=== PATIENT | female | born 1975 | race Two or more races ===

== ENCOUNTER 2017-09-28 12:26 | Observation (INO) | payer OTHER ==
--- NOTE | 2017-09-28 12:20 | CT ---
EXAMINATION TYPE: CT abdomen pelvis wo con DATE OF EXAM: 09/28/2017 COMPARISON: 03/03/2012 HISTORY: Generalized pain CT DLP: 1106 mGycm Automated exposure control for dose reduction was used. TECHNIQUE: Helical acquisition of images was performed from the lung bases through the pelvis. FINDINGS: LUNG BASES: Linear platelike right middle lobe subsegmental atelectasis is noted. LIVER/GB: Unenhanced liver is unremarkable in morphology. No evidence of cholelithiasis. PANCREAS: No ductal dilatation. SPLEEN: No splenomegaly. ADRENALS: No thickening or nodularity. KIDNEYS: Kidneys are unremarkable in morphology. FREE AIR: No free air is visualized RETROPERITONEAL ADENOPATHY: No greater than 1 cm short axis lymph nodes are seen within the abdomen or pelvis. REPRODUCTIVE ORGANS: Uterus is surgically absent. There is a small amount of simple free fluid within the pelvis layering dependently. URINARY BLADDER: No significant abnormality is seen. OSSEOUS STRUCTURES: No significant abnormality is seen. BOWEL: There are scattered colonic diverticula without pericolonic fat straining. No evidence of bow el dilation or obstruction. The appendix contains an appendicolith and is dilated with mild periappen diceal fat stranding. The appendix measures up to 1.0 cm. OTHER: There is a very small fat filled periumbilical hernia. Mild multilevel degenerative changes of the spine are noted. Mild calcific atheromatous changes are seen of the abdominal aorta and its bran ches. IMPRESSION: FINDINGS OF ACUTE APPENDICITIS APPEARING UNCOMPLICATED OTHER THAN AN OBSTRUCTING APPENDICOLITH. NO PE RIAPPENDICEAL FLUID COLLECTION/ABSCESS. NO EVIDENCE OF CURRENT PERFORATION. Findings were communicate d with nurse practitioner at Dr. Toledo's office 12:15 on 09/28/[address] Toscano. The patient will be instructed to go to the ER.
[2017-09-28] MEDS ORDERED: PIPERACILLIN-TAZOBACTAM 3.375 GM in DEXTROSE/WATER 1 50ML.BAG IVPB STA (12:54)
[2017-09-28] MEDS ORDERED: SODIUM CHLORIDE 0.9% 1,000 ML IV STA (12:54)
--- NOTE | 2017-09-28 13:02 | ED ---
Abdominal Pain HPI - General Chief Complaint: Abdominal Pain Stated Complaint: abnormal CT Time Seen by Provider: 09/28/17 12:53 Source: patient, RN notes reviewed Mode of arrival: ambulatory Limitations: no limitations - History of Present Illness Initial Comments: This is a 42-year-old female presents emergency Department from outpatient CT for possible appendicitis. She states she started developing abdominal pain on Tuesday which has worsened and has progressed to her mid to right lower quadrant. Patient states that pain was more upper abdomen at that time. She's had prior hysterectomy and section has never seen a general surgeon. She does admit to some nausea and anorexia. Denies any constipation minus have slight diarrhea. Denies any known fever but admits to chills. - Related Data Home Medications Medication Instructions Recorded Confirmed Lisinopril 40 mg PO DAILY 09/28/17 09/28/17 Allergies Allergy/AdvReac Type Severity Reaction Status Date / Time No Known Allergies Allergy Verified 09/28/17 12:38 Review of Systems ROS Statement: Those systems with pertinent positive or pertinent negative responses have been documented in the HPI. ROS Other: All systems not noted in ROS Statement are negative. Past Medical History Past Medical History: Hyperlipidemia, Hypertension History of Any Multi-Drug Resistant Organisms: None Reported Past Surgical History: Section, Hysterectomy Past Psychological History: Anxiety Smoking Status: Current every day smoker Past Alcohol Use History: None Reported Past Drug Use History: None Reported General Exam Limitations: no limitations General appearance: alert, in no apparent distress Neck exam: Present: normal inspection, full ROM. Absent: tenderness, meningismus, lymphadenopathy Respiratory exam: Present: normal lung sounds bilaterally. Absent: respiratory distress, wheezes, rales, rhonchi, stridor Cardiovascular Exam: Present: regular rate, normal rhythm, normal heart sounds. Absent: systolic murmur, diastolic murmur, rubs, gallop, clicks GI/Abdominal exam: Present: soft, tenderness (Mild to moderate periumbilical to right lower quadrant), normal bowel sounds. Absent: distended, guarding, rebound, rigid Back exam: Absent: CVA tenderness (R), CVA tenderness (L) Course Vital Signs 09/28/17 12:29 Temperature 99.2 F Pulse Rate 77 Respiratory 20 Rate Blood Pressure 144/81 O2 Sat by Pulse 98 Oximetry - Reevaluation(s) Reevaluation #1: 09/28/17 13:01 CT was reviewed patient had lab work ordered, antibiotics ordered and fluids. Medical Decision Making - Medical Decision Making 42-year-old female presents to the ER for abdominal pain. Patient has a positive CT showing appendicitis. Patient will be admitted for surgery. Antibiotics ordered. Disposition Clinical Impression: Acute appendicitis Disposition: ADMITTED IP TO THIS HOSP Condition: Stable Is patient prescribed a controlled substance at d/c from ED?: No Referrals: Sacha Toledo MD [Primary Care Provider] - 1-2 days
[2017-09-28] MEDS: SODIUM CHLORIDE 0.9% 1,000 ML IV SCH ×2 (13:20→15:13)
[2017-09-28] MEDS: MORPHINE SULFATE 4 MG/0.8 ML SYRINGE (INJ) IV PRN ×2 (13:21→17:59)
[2017-09-28] MEDS: ONDANSETRON 4 MG/2 ML VIAL IVP PRN ×2 (13:21→17:59)
[2017-09-28 13:24] LABS: Basophils % (A) 0 %; Eosinophils # (A) 0.3 k/uL (0-0.7); Eosinophils % (A) 2 %; HCT 48.3 % (34.0-46.0); HGB 15.6 gm/dL (11.4-16.0); Lymphocytes # (A) 3.6 k/uL (1.0-4.8); Lymphocytes % (A) 32 %; MCH 28.1 pg (25.0-35.0); MCHC 32.3 g/dL (31.0-37.0); Mean Platelet Volume 9.3; Monocytes # (A) 0.5 k/uL (0-1.0); Monocytes % (A) 4 %; Neutrophils # (A) 6.7 k/uL (1.3-7.7); Neutrophils % (A) 60 %; Platelet Count 341 k/uL (150-450); RBC 5.56 m/uL (3.80-5.40); RDW 13.8 % (11.5-15.5); WBC 11.2 k/uL (3.8-10.6)
[2017-09-28 13:28] LABS: ALT 32 U/L (9-52); AST 28 U/L (14-36); Albumin 4.7 g/dL (3.5-5.0); Alkaline Phosphatase 65 U/L (38-126); Amylase 50 U/L (30-110); Anion Gap 16 mmol/L; Blood Urea Nitrogen 14 mg/dL (7-17); Carbon Dioxide 25 mmol/L (22-30); Chloride 105 mmol/L (98-107); Glucose 84 mg/dL (74-99); Lipase 60 U/L (23-300); Sodium 146 mmol/L (137-145); Total Bilirubin 0.8 mg/dL (0.2-1.3); Total Protein 7.7 g/dL (6.3-8.2)
[2017-09-28 13:31] LABS: Potassium 4.7 mmol/L (3.5-5.1)
[2017-09-28 13:49] LABS: INR 1.1 (<1.2); Partial Thromboplastin Time 24.3 sec (22.0-30.0); Prothrombin Time 10.8 sec (9.0-12.0)
[2017-09-28 13:54] LABS: Appearance,Urine Clear (Clear); Bilirubin,Urine Negative (Negative); Blood,Urine Trace (Negative); Color,Urine Yellow; Glucose,Urine (UA) Negative (Negative); Ketones,Urine Negative (Negative); Leukocyte Esterase,Urine Negative (Negative); Mucus,Urine Few /hpf; Nitrite,Urine Negative (Negative); PH, Urine 5.5 (5.0-8.0); Protein,Urine Negative (Negative); RBC,Urine 1 /hpf (0-5); Specific Gravity,Urine 1.018 (1.001-1.035); Squamous Epithelial Cell,Urine 1 /hpf (0-4); Urobilinogen,Urine <2.0 mg/dL (<2.0); WBC,Urine 1 /hpf (0-5)
--- NOTE | 2017-09-28 15:00 | P.GSHP ---
History of Present Illness H&P Date: 09/28/17 42-year-old female presents to the emergency department complaining of abdominal pain in the right lower quadrant. She states that the pain started approximately 2 days ago in the middle of her abdomen that she states felt like a soreness after stretching. She states that the pain worsened over the next couple of days and resided in her right lower quadrant. She complains of decreased appetite. She states that she had some mild nausea but no emesis episodes. She is having normal bowel function. She denies any fevers, chills, chest pain or shortness of breath. She states that she has never had pain like this before. She denies being on any anticoagulation. She states that previously she has had a total hysterectomy. She has no additional complaints at this time. - Review of Systems All systems: negative Past Medical History Past Medical History: Hyperlipidemia, Hypertension Additional Past Medical History / Comment(s): "Borderline high cholesterol, I was given a script but decided not to take it", sinus problems. History of Any Multi-Drug Resistant Organisms: None Reported Past Surgical History: Adenoidectomy, Section, Hysterectomy Additional Past Surgical History / Comment(s): x 2 Past Anesthesia/Blood Transfusion Reactions: No Reported Reaction Past Psychological History: Anxiety Additional Psychological History / Comment(s): Pt resides with her 2 children ages 15 and 20 yrs. She is independent. 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 Smoking Status: Current every day smoker Past Alcohol Use History: None Reported Additional Past Alcohol Use History / Comment(s): Pt started smoking in 2011 and is less than a ppd smoker. Past Drug Use History: None Reported - Past Family History Father Family Medical History: Diabetes Mellitus Mother Family Medical History: Hypertension Medications and Allergies Home Medications Medication Instructions Recorded Confirmed Type Lisinopril 40 mg PO DAILY 09/28/17 09/28/17 History Allergies Allergy/AdvReac Type Severity Reaction Status Date / Time No Known Allergies Allergy Verified 09/28/17 12:38 Surgical - Exam Osteopathic Statement: *. No significant issues noted on an osteopathic structural exam other than those noted in the History and Physical/Consult. Vital Signs Temp Pulse Resp BP Pulse Ox 99.2 F 77 20 144/81 98 09/28/17 12:29 09/28/17 12:29 09/28/17 12:29 09/28/17 12:29 09/28/17 12:29 - General well developed, well nourished, no distress - Eyes PERRL, normal ocular movement - ENT normal mucosa, no hearing loss - Neck no masses, no bruits, trachea midline - Respiratory No difficulty with respiration - Abdomen Soft, tender to palpation in the right lower quadrant, nondistended, no rebound , no guarding - Neurologic normal sensation - Psychiatric oriented to time, oriented to person, oriented to place, speech is normal Results - Labs 09/28/17 12:43 09/28/17 12:43 Abnormal Lab Results - Last 24 Hours (Table) 09/28/17 09/28/17 09/28/17 Range/Units 12:43 12:43 13:27 WBC 11.2 H (3.8-10.6) k/uL RBC 5.56 H (3.80-5.40) m/uL Hct 48.3 H (34.0-46.0) % Sodium 146 H (137-145) mmol/L Creatinine 0.50 L (0.52-1.04) mg/dL Urine Blood Trace H (Negative) Urine Mucus Few H (None) /hpf Diabetes panel 09/28/17 Range/Units 12:43 Sodium 146 H (137-145) mmol/L Potassium 4.7 (3.5-5.1) mmol/L Chloride 105 (98-107) mmol/L Carbon Dioxide 25 (22-30) mmol/L BUN 14 (7-17) mg/dL Creatinine 0.50 L (0.52-1.04) mg/dL Glucose 84 (74-99) mg/dL Calcium 10.0 (8.4-10.2) mg/dL AST 28 (14-36) U/L ALT 32 (9-52) U/L Alkaline Phosphatase 65 (38-126) U/L Total Protein 7.7 (6.3-8.2) g/dL Albumin 4.7 (3.5-5.0) g/dL Calcium panel 09/28/17 Range/Units 12:43 Calcium 10.0 (8.4-10.2) mg/dL Albumin 4.7 (3.5-5.0) g/dL Pituitary panel 09/28/17 Range/Units 12:43 Sodium 146 H (137-145) mmol/L Potassium 4.7 (3.5-5.1) mmol/L Chloride 105 (98-107) mmol/L Carbon Dioxide 25 (22-30) mmol/L BUN 14 (7-17) mg/dL Creatinine 0.50 L (0.52-1.04) mg/dL Glucose 84 (74-99) mg/dL Calcium 10.0 (8.4-10.2) mg/dL Adrenal panel 09/28/17 Range/Units 12:43 Sodium 146 H (137-145) mmol/L Potassium 4.7 (3.5-5.1) mmol/L Chloride 105 (98-107) mmol/L Carbon Dioxide 25 (22-30) mmol/L BUN 14 (7-17) mg/dL Creatinine 0.50 L (0.52-1.04) mg/dL Glucose 84 (74-99) mg/dL Calcium 10.0 (8.4-10.2) mg/dL Total Bilirubin 0.8 (0.2-1.3) mg/dL AST 28 (14-36) U/L ALT 32 (9-52) U/L Alkaline Phosphatase 65 (38-126) U/L Total Protein 7.7 (6.3-8.2) g/dL Albumin 4.7 (3.5-5.0) g/dL - Imaging CT scan - abdomen: report reviewed, image reviewed CT scan - pelvis: report reviewed, image reviewed (CT of the abdomen and pelvis was reviewed. There is noted fat stranding in the right lower quadrant with appendicolith in place.) Assessment and Plan (1) Acute appendicitis Narrative/Plan: 42-year-old female with acute appendicitis - Keep nothing by mouth - Begin IV antibiotics - Begin subcu heparin - Pain control - Plan for operating room for laparoscopic appendectomy - Further recommendations after surgery Current Visit: Yes Status: Acute Code(s): K35.80 - UNSPECIFIED ACUTE APPENDICITIS SNOMED Code(s): 57896359
[2017-09-28] MEDS ORDERED: HEPARIN SODIUM,PORCINE 5,000 UNIT/ML 1 ML VIAL SQ SCH (16:00)
[2017-09-28] MEDS ORDERED: IV FLUID CONTINUATION 1,000 ML IV ONE (16:04)
[2017-09-28] MEDS ORDERED: KETOROLAC 30 MG/ML 1 ML VIAL ONE (16:10)
[2017-09-28] MEDS ORDERED: SUCCINYLCHOLINE CHLORIDE 100 MG/5 ML SYR IV ONE (16:10)
[2017-09-28] MEDS ORDERED: fentaNYL (PF) 50 MCG/ML 2 ML AMP ONE (16:10)
[2017-09-28] MEDS ORDERED: MIDAZOLAM 2 MG/2 ML VIAL ONE (16:10)
[2017-09-28] MEDS ORDERED: VECURONIUM 10 MG VIAL IV ONE (16:10)
[2017-09-28] MEDS ORDERED: NEOSTIGMINE 1 MG/ML 10 ML VIAL ONE (16:10)
[2017-09-28] MEDS ORDERED: LIDOCAINE 1% INJ 10MG/ML (20 ML MDV) ONE (16:10)
[2017-09-28] MEDS ORDERED: GLYCOPYRROLATE 0.2 MG/ML 2 ML VIAL ONE (16:10)
[2017-09-28] MEDS ORDERED: PROPOFOL 10 MG/ML 20 ML VIAL IV ONE (16:10)
[2017-09-28] MEDS ORDERED: BUPIVACAINE (PF) 0.25% 30 ML VIAL SQ ONE (16:47)
--- NOTE | 2017-09-28 18:04 | P.OP ---
Date of Procedure: 09/28/17 Preoperative Diagnosis: Acute appendicitis Postoperative Diagnosis: Acute appendicitis Procedure(s) Performed: Laparoscopic appendectomy Anesthesia: AVRIL Surgeon: Marcell López Pathology: other (Appendix) Condition: stable Disposition: floor Indications for Procedure: 42-year-old female presented to the emergency department complaining of right lower quadrant pain. The pain had been present for approximately [address] of the abdomen and pelvis during workup the patient was noted to have acute appendicitis. Secondary to this, a laparoscopic appendectomy was planned for the patient. The risks, benefits and alternatives were provided to the patient. The patient did provide consent prior to attending the operating suite. Operative Findings: Indurated and injected appendix with mild surrounding turbid fluid Description of Procedure: The patient was brought into the operating suite and placed in supine position on the operating table. Sedation was provided by anesthesia and the patient underwent endotracheal intubation. The patient was then prepped and draped in regular sterile fashion. A super umbilical incision was made dissection was carried to the fascia the fascia was incised and the abdomen was entered with a 12 mm port. Pneumoperitoneum was then achieved. The patient was then placed in appropriate position and the appendix was clearly visualized. 2 additional 5 mm ports were placed. One was placed in the suprapubic region and one was placed in the left lower quadrant. The appendix was then grasped and blunt dissection was used to free the appendix from the surrounding omental adhesions. The appendix appeared injected and erythematous. Dissection was then carried with a [place] dissector to create a window between the base of the appendix and the mesoappendix. Once this was completed LigaSure device was used to dissect the mesoappendix. Hemostasis was noted to be maintained. At this point a 45 mm purple load Endo YVONNE stapler load was fired across the base of the appendix. The appendix was then placed in an Endo Catch bag and removed from the abdomen from the super umbilical incision. Irrigation was then used in the right lower quadrant. Hemostasis was noted to be maintained. The patient was then placed in neutral position. Pneumoperitoneum was released and all ports were removed. The supraumbilical fascial incision was closed with multiple 0 Vicryl interrupted sutures. All skin incisions were then closed with 4-0 Vicryl subcuticular sutures. The patient was awakened in the operating suite and taken to postanesthesia care unit in stable condition.
[2017-09-28] MEDS ORDERED: MEPERIDINE 50 MG/ML SYRINGE IVP ONE (18:07)
[2017-09-28] MEDS ORDERED: ONDANSETRON 4 MG/2 ML VIAL IVP PRN (18:59)
[2017-09-28] MEDS ORDERED: NALOXONE 0.4 MG/ML 1 ML VIAL IV PRN (18:59)
[2017-09-28] MEDS ORDERED: LACTATED RINGERS 1,000 ML IV ONE (18:59)
[2017-09-28] MEDS ORDERED: MORPHINE SULFATE 4 MG/0.8 ML SYRINGE (INJ) IVP PRN (18:59)
[2017-09-28] MEDS: HYDROcodone/APAP 5-325MG 1 EACH TAB PO PRN (20:52)
[2017-09-28] MEDS: FAMOTIDINE 20 MG TAB PO SCH (20:58)
[2017-09-29] MEDS: HEPARIN SODIUM,PORCINE 5,000 UNIT/ML 1 ML VIAL SQ SCH ×2 (01:23→08:18)
[2017-09-29] MEDS: HYDROcodone/APAP 5-325MG 1 EACH TAB PO PRN ×2 (03:45→08:17)
[2017-09-29 07:30] LABS: Anion Gap 7 mmol/L; Blood Urea Nitrogen 9 mg/dL (7-17); Calcium 8.9 mg/dL (8.4-10.2); Carbon Dioxide 28 mmol/L (22-30); Chloride 107 mmol/L (98-107); Glucose 74 mg/dL (74-99); Potassium 4.4 mmol/L (3.5-5.1); Sodium 142 mmol/L (137-145)
[2017-09-29 07:31] LABS: Basophils % (A) 1 %; Eosinophils # (A) 0.2 k/uL (0-0.7); Eosinophils % (A) 2 %; HCT 38.9 % (34.0-46.0); HGB 12.7 gm/dL (11.4-16.0); Lymphocytes # (A) 4.5 k/uL (1.0-4.8); Lymphocytes % (A) 50 %; MCH 28.7 pg (25.0-35.0); MCHC 32.7 g/dL (31.0-37.0); MCV 87.9 fL (80.0-100.0); Mean Platelet Volume 8.6; Monocytes # (A) 0.3 k/uL (0-1.0); Monocytes % (A) 4 %; Neutrophils # (A) 3.9 k/uL (1.3-7.7); Neutrophils % (A) 43 %; Platelet Count 279 k/uL (150-450); RBC 4.43 m/uL (3.80-5.40); RDW 13.9 % (11.5-15.5); WBC 9.2 k/uL (3.8-10.6)
[2017-09-29] MEDS: FAMOTIDINE 20 MG TAB PO SCH (08:18)
--- NOTE | 2017-09-29 11:21 | P.DS ---
Providers Date of admission: 09/28/17 13:02 Attending physician: Marcell López DO Primary care physician: Sacha Toledo - Discharge Diagnosis(es) (1) Acute appendicitis Current Visit: Yes Status: Acute Hospital Course: The patient did initially presented to the emergency department and was taken to the operating room for laparoscopic appendectomy. Postoperatively, the patient was placed on the surgical unit. She was ambulating and urinating well. Her appetite increased and she tolerated a soft diet. She said pain was well-controlled. She had no drainage from her incisions. Laboratory values were evaluated and leukocytosis resolved. At that point, she was deemed stable for discharge. Procedures: Laparoscopic appendectomy Patient Condition at Discharge: Stable Plan - Discharge Summary Discharge Rx Participant: No New Discharge Prescriptions: New HYDROcodone/APAP 5-325MG [[place] 5-325] 1 each PO Q6HR PRN #16 tab PRN Reason: Mild Pain Docusate [Colace] 100 mg PO BID #20 capsule No Action Lisinopril 40 mg PO DAILY Discharge Medication List Lisinopril 40 mg PO DAILY 09/28/17 [History] Docusate [Colace] 100 mg PO BID #20 capsule 09/29/17 [Rx] HYDROcodone/APAP 5-325MG [[place] 5-325] 1 each PO Q6HR PRN #16 tab 09/29/17 [Rx] Follow up Appointment(s)/Referral(s): Sacha Toledo MD [Primary Care Provider] - 1-2 days Marcell López DO [Doctor of Osteopathic Medicine] - 10 Days Patient Instructions/Handouts: Laparoscopic Appendectomy (DC) Activity/Diet/Wound Care/Special Instructions: Increase activity daily No lifting greater than 10 pounds Okay to shower, beginning today Take prescribed pain medication as necessary, if pain not severe, okay to take [id number] ibuprofen Follow-up in clinic in approximately 10 days Discharge Disposition: HOME SELF-CARE
[2017-09-29 13:30] VITALS: BP 127/77; PULSE 80; RESP 14; TEMP 97.6
== END 2017-09-29 14:06 | disposition home or self-care (01) ==
LOC: EC 12:26 → 3SUR 13:02
PROVIDERS: ADMIT Surgery; ATTEND Surgery
DX: K35.80 Unspecified acute appendicitis (principal); I10 Essential (primary) hypertension; F41.9 Anxiety disorder, unspecified; E78.5 Hyperlipidemia, unspecified; F17.210 Nicotine dependence, cigarettes, uncomplicated; Z90.710 Acquired absence of both cervix and uterus; Z83.3 Family history of diabetes mellitus; Z82.49 Family history of ischemic heart disease and other diseases of the circulatory system; Z79.899 Other long term (current) drug therapy
CPT/HCPCS: 44970; 99285; 36415; 88304; 80053; 80048; 82150; 83605; 83690; 85025 ×2; 85610; 85730; 81001; 87040; 74176; G0378 ×2; J2250; J1644 ×2; J2710; J2175; J2405; J2001; J3010; J1885; J2543; J0330; J2704; J2270

== ENCOUNTER 2017-09-29 18:09 | Observation (INO) | payer OTHER ==
[2017-09-29] MEDS ORDERED: SODIUM CHLORIDE 0.9% 1,000 ML IV STA (18:13)
[2017-09-29] MEDS ORDERED: RX INFO: IV CONTRAST WAS GIVEN 1 EACH MISC MISCELLANE PRN (18:13)
[2017-09-29] MEDS ORDERED: PANTOPRAZOLE 40 MG/10 ML VIAL IVP STA (18:16)
[2017-09-29] MEDS ORDERED: MORPHINE SULFATE 4 MG/0.8 ML SYRINGE (INJ) IVP STA (18:16)
[2017-09-29] MEDS ORDERED: ONDANSETRON 4 MG/2 ML VIAL IVP STA (18:16)
--- NOTE | 2017-09-29 18:46 | ED ---
General Adult HPI - General Chief complaint: Chest Pain Stated complaint: Chest Pain Time Seen by Provider: 09/29/17 18:12 Source: patient, EMS, RN notes reviewed, old records reviewed Mode of arrival: EMS Limitations: no limitations - History of Present Illness Initial comments: This is a 42-year-old female the ER for evaluation of chest pain anterior chest pain positive nausea, no vomiting. No diarrhea. Patient did have surgery for appendicitis yesterday, feeling hot with chills but states she was feeling fine prior to discharge. Patient is still complaining of anterior chest pain substernal chest pain and abdominal pain. - Related Data Home Medications Medication Instructions Recorded Confirmed Lisinopril 40 mg PO DAILY 09/28/17 09/29/17 Previous Rx's Medication Instructions Recorded Docusate [Colace] 100 mg PO BID #20 capsule 09/29/17 HYDROcodone/APAP 5-325MG [[place] 1 each PO Q6HR PRN #16 tab 09/29/17 5-325] Allergies Allergy/AdvReac Type Severity Reaction Status Date / Time No Known Allergies Allergy Verified 09/29/17 19:21 Review of Systems ROS Statement: Those systems with pertinent positive or pertinent negative responses have been documented in the HPI. ROS Other: All systems not noted in ROS Statement are negative. Past Medical History Past Medical History: Hyperlipidemia, Hypertension Additional Past Medical History / Comment(s): "Borderline high cholesterol, I was given a script but decided not to take it", sinus problems. History of Any Multi-Drug Resistant Organisms: None Reported Past Surgical History: Adenoidectomy, Appendectomy, Section, Hysterectomy, Tonsillectomy Additional Past Surgical History / Comment(s): x 2 Past Anesthesia/Blood Transfusion Reactions: No Reported Reaction Past Psychological History: Anxiety Smoking Status: Current every day smoker Past Alcohol Use History: None Reported Past Drug Use History: None Reported - Past Family History Father Family Medical History: Diabetes Mellitus Mother Family Medical History: Hypertension General Exam Limitations: no limitations General appearance: alert, in no apparent distress Head exam: Present: atraumatic, normocephalic, normal inspection Eye exam: Present: normal appearance, PERRL, EOMI. Absent: scleral icterus, conjunctival injection, periorbital swelling ENT exam: Present: normal exam, mucous membranes moist Neck exam: Present: normal inspection. Absent: tenderness, meningismus, lymphadenopathy Respiratory exam: Present: normal lung sounds bilaterally. Absent: respiratory distress, wheezes, rales, rhonchi, stridor Cardiovascular Exam: Present: regular rate, normal rhythm, normal heart sounds. Absent: systolic murmur, diastolic murmur, rubs, gallop, clicks GI/Abdominal exam: Present: soft, normal bowel sounds. Absent: distended, tenderness, guarding, rebound, rigid Extremities exam: Present: normal inspection, full ROM, normal capillary refill. Absent: tenderness, pedal edema, joint swelling, calf tenderness Back exam: Present: normal inspection Neurological exam: Present: alert, oriented X3, CN II-XII intact Psychiatric exam: Present: normal affect, normal mood Skin exam: Present: warm, dry, intact, normal color. Absent: rash Course Vital Signs 09/29/17 09/29/17 09/29/17 18:12 18:54 20:03 Temperature 99.6 F 101.3 F H Pulse Rate 74 81 Pulse Rate [ 99 Lug Breaker And Wire Puller ] Respiratory 20 18 Rate Blood Pressure 210/101 136/63 O2 Sat by Pulse 100 98 Oximetry 09/29/17 09/29/17 09/29/17 20:43 20:49 21:10 Temperature Pulse Rate 82 84 84 Pulse Rate [ Lug Breaker And Wire Puller ] Respiratory 16 18 Rate Blood Pressure 154/72 O2 Sat by Pulse 99 Oximetry 09/29/17 21:25 Temperature 99.4 F Pulse Rate Pulse Rate [ Lug Breaker And Wire Puller ] Respiratory Rate Blood Pressure O2 Sat by Pulse Oximetry - Reevaluation(s) Reevaluation #1: Spoke with patient's surgeon christi Garrido for admission Spoke with patient regarding symptoms, EKG Findings - EKG Comments: EKG Findings:: EKG shows normal sinus rhythm rate of 84, NH 150, QRS 90, QTc 4: 30 Medical Decision Making - Medical Decision Making 42 female the ER with postoperative complaints, postop fever, chest pain. Patient will be admitted for continued observation of pain and fever - Lab Data Result diagrams: 09/30/17 06:54 09/29/17 18:15 Lab Results 09/29/17 09/29/17 09/29/17 Range/Units 18:15 18:15 18:15 WBC 13.7 H (3.8-10.6) k/uL RBC 4.77 (3.80-5.40) m/uL Hgb 13.4 (11.4-16.0) gm/dL Hct 41.7 (34.0-46.0) % MCV 87.5 (80.0-100.0) fL MCH 28.1 (25.0-35.0) pg MCHC 32.2 (31.0-37.0) g/dL RDW 13.9 (11.5-15.5) % Plt Count 288 (150-450) k/uL Neutrophils % 74 % Lymphocytes % 20 % Monocytes % 3 % Eosinophils % 2 % Basophils % 0 % Neutrophils # 10.1 H (1.3-7.7) k/uL Lymphocytes # 2.7 (1.0-4.8) k/uL Monocytes # 0.5 (0-1.0) k/uL Eosinophils # 0.3 (0-0.7) k/uL Basophils # 0.0 (0-0.2) k/uL PT (9.0-12.0) sec INR (<1.2) APTT (22.0-30.0) sec D-Dimer (<0.60) mg/L FEU Sodium 145 (137-145) mmol/L Potassium 3.8 (3.5-5.1) mmol/L Chloride 106 (98-107) mmol/L Carbon Dioxide 26 (22-30) mmol/L Anion Gap 13 mmol/L BUN 12 (7-17) mg/dL Creatinine 0.70 (0.52-1.04) mg/dL Est GFR (CKD-EPI)AfAm >90 (>60 ml/min/1.73 sqM) Est GFR (CKD-EPI)NonAf >90 (>60 ml/min/1.73 sqM) Glucose 94 (74-99) mg/dL Plasma Lactic Acid [place] (0.7-2.0) mmol/L Calcium 9.3 (8.4-10.2) mg/dL Phosphorus 2.7 (2.5-4.5) mg/dL Magnesium 1.9 (1.6-2.3) mg/dL Total Bilirubin 0.5 (0.2-1.3) mg/dL AST 39 H (14-36) U/L ALT 32 (9-52) U/L Alkaline Phosphatase 72 (38-126) U/L Total Creatine Kinase 609 H (30-135) U/L CK-MB (CK-2) 3.4 H* (0.0-2.4) ng/mL CK-MB (CK-2) Rel Index 0.6 Troponin I <0.012 (0.000-0.034) ng/mL Total Protein 6.8 (6.3-8.2) g/dL Albumin 4.1 (3.5-5.0) g/dL Lipase 120 (23-300) U/L Urine Color Urine Appearance (Clear) Urine pH (5.0-8.0) Ur Specific [place] (1.001-1.035) Urine Protein (Negative) Urine Glucose (UA) (Negative) Urine Ketones (Negative) Urine Blood (Negative) Urine Nitrite (Negative) Urine Bilirubin (Negative) Urine Urobilinogen (<2.0) mg/dL Ur Leukocyte Esterase (Negative) Urine RBC (0-5) /hpf Urine WBC (0-5) /hpf Ur Squamous Epith Cells (0-4) /hpf Urine Bacteria (None) /hpf 09/29/17 09/29/17 09/29/17 Range/Units 18:15 18:15 18:15 WBC (3.8-10.6) k/uL RBC (3.80-5.40) m/uL Hgb (11.4-16.0) gm/dL Hct (34.0-46.0) % MCV (80.0-100.0) fL MCH (25.0-35.0) pg MCHC (31.0-37.0) g/dL RDW (11.5-15.5) % Plt Count (150-450) k/uL Neutrophils % % Lymphocytes % % Monocytes % % Eosinophils % % Basophils % % Neutrophils # (1.3-7.7) k/uL Lymphocytes # (1.0-4.8) k/uL Monocytes # (0-1.0) k/uL Eosinophils # (0-0.7) k/uL Basophils # (0-0.2) k/uL PT 11.4 (9.0-12.0) sec INR 1.2 H (<1.2) APTT 25.2 (22.0-30.0) sec D-Dimer 1.61 H (<0.60) mg/L FEU Sodium (137-145) mmol/L Potassium (3.5-5.1) mmol/L Chloride (98-107) mmol/L Carbon Dioxide (22-30) mmol/L Anion Gap mmol/L BUN (7-17) mg/dL Creatinine (0.52-1.04) mg/dL Est GFR (CKD-EPI)AfAm (>60 ml/min/1.73 sqM) Est GFR (CKD-EPI)NonAf (>60 ml/min/1.73 sqM) Glucose (74-99) mg/dL Plasma Lactic Acid [place] 1.4 (0.7-2.0) mmol/L Calcium (8.4-10.2) mg/dL Phosphorus (2.5-4.5) mg/dL Magnesium (1.6-2.3) mg/dL Total Bilirubin (0.2-1.3) mg/dL AST (14-36) U/L ALT (9-52) U/L Alkaline Phosphatase (38-126) U/L Total Creatine Kinase (30-135) U/L CK-MB (CK-2) (0.0-2.4) ng/mL CK-MB (CK-2) Rel Index Troponin I (0.000-0.034) ng/mL Total Protein (6.3-8.2) g/dL Albumin (3.5-5.0) g/dL Lipase (23-300) U/L Urine Color Colorless Urine Appearance Cloudy H (Clear) Urine pH 7.5 (5.0-8.0) Ur Specific [place] 1.005 (1.001-1.035) Urine Protein Negative (Negative) Urine Glucose (UA) Negative (Negative) Urine Ketones Negative (Negative) Urine Blood Negative (Negative) Urine Nitrite Negative (Negative) Urine Bilirubin Negative (Negative) Urine Urobilinogen <2.0 (<2.0) mg/dL Ur Leukocyte Esterase Negative (Negative) Urine RBC 1 (0-5) /hpf Urine WBC 6 H (0-5) /hpf Ur Squamous Epith Cells 7 H (0-4) /hpf Urine Bacteria Rare H (None) /hpf - Radiology Data Radiology results: report reviewed (CT chest and pelvis is negative for acute disease), image reviewed Disposition Clinical Impression: Postoperative fever Disposition: ADMITTED IP TO THIS HOSP Condition: Good Is patient prescribed a controlled substance at d/c from ED?: No
[2017-09-29 18:55] LABS: Basophils % (A) 0 %; Eosinophils # (A) 0.3 k/uL (0-0.7); Eosinophils % (A) 2 %; HCT 41.7 % (34.0-46.0); HGB 13.4 gm/dL (11.4-16.0); Lymphocytes # (A) 2.7 k/uL (1.0-4.8); Lymphocytes % (A) 20 %; MCH 28.1 pg (25.0-35.0); MCHC 32.2 g/dL (31.0-37.0); MCV 87.5 fL (80.0-100.0); Mean Platelet Volume 9.5; Monocytes # (A) 0.5 k/uL (0-1.0); Monocytes % (A) 3 %; Neutrophils # (A) 10.1 k/uL (1.3-7.7); Neutrophils % (A) 74 %; Platelet Count 288 k/uL (150-450); RBC 4.77 m/uL (3.80-5.40); RDW 13.9 % (11.5-15.5); WBC 13.7 k/uL (3.8-10.6)
[2017-09-29 19:02] LABS: ALT 32 U/L (9-52); AST 39 U/L (14-36); Albumin 4.1 g/dL (3.5-5.0); Alkaline Phosphatase 72 U/L (38-126); Anion Gap 13 mmol/L; Appearance,Urine Cloudy (Clear); Bacteria,Urine Rare /hpf; Bilirubin,Urine Negative (Negative); Blood Urea Nitrogen 12 mg/dL (7-17); Blood,Urine Negative (Negative); Calcium 9.3 mg/dL (8.4-10.2); Carbon Dioxide 26 mmol/L (22-30); Chloride 106 mmol/L (98-107); Color,Urine Colorless; Glucose 94 mg/dL (74-99); Glucose,Urine (UA) Negative (Negative); Ketones,Urine Negative (Negative); Leukocyte Esterase,Urine Negative (Negative); Lipase 120 U/L (23-300); Magnesium 1.9 mg/dL (1.6-2.3); Nitrite,Urine Negative (Negative); PH, Urine 7.5 (5.0-8.0); Phosphorus 2.7 mg/dL (2.5-4.5); Potassium 3.8 mmol/L (3.5-5.1); Protein,Urine Negative (Negative); RBC,Urine 1 /hpf (0-5); Sodium 145 mmol/L (137-145); Specific Gravity,Urine 1.005 (1.001-1.035); Squamous Epithelial Cell,Urine 7 /hpf (0-4); Total Bilirubin 0.5 mg/dL (0.2-1.3); Total Protein 6.8 g/dL (6.3-8.2); Urobilinogen,Urine <2.0 mg/dL (<2.0); WBC,Urine 6 /hpf (0-5)
[2017-09-29 19:06] LABS: INR 1.2 (<1.2); Partial Thromboplastin Time 25.2 sec (22.0-30.0); Prothrombin Time 11.4 sec (9.0-12.0)
[2017-09-29 19:14] LABS: Creatine Kinase 609 U/L (30-135)
[2017-09-29 19:20] LABS: D-Dimer 1.61 mg/L FEU (<0.60)
[2017-09-29 19:26] LABS: Troponin I <0.012 ng/mL (0.000-0.034)
[2017-09-29 19:28] LABS: Creatine Kinase MB 3.4 ng/mL (0.0-2.4)
--- NOTE | 2017-09-29 20:02 | CT ---
EXAMINATION TYPE: CT abdomen pelvis w con DATE OF EXAM: 09/29/2017 COMPARISON: Yesterday HISTORY: Appendectomy yesterday. Chest pain and abdominal pain today. CT DLP: 478.8 mGycm Automated exposure control for dose reduction was used. TECHNIQUE: Helical acquisition of images was performed from the lung bases through the pelvis. CONTRAST: Performed without Oral Contrast and with IV Contrast, patient injected with 100 mL of Isovue 370. FINDINGS: There is linear infiltrate and atelectasis at the lung bases and more on the right side. There is a s mall pneumoperitoneum. There are postsurgical changes with subcutaneous air over the anterior abdomen . There is midline postsurgical changes apparently from laparoscopic surgery at the umbilicus. Liver shows no focal defect. Bile ducts are not dilated. Spleen appears normal. There is no pancreati c mass. Gallbladder appears normal. There is no adrenal mass. Kidneys show satisfactory contrast opacification. There is no hydronephrosi s. There is a 1 cm right renal cortical cyst. There are surgical clips in the region of the cecum. Th ere is a small fluid collection in the pelvis that measures 6 x 3 cm. Bladder distends smoothly. Ther e is no sign of a bowel obstruction. Bowel is not dilated. There are some spondylotic changes in the lower thoracic spine. I see no bony destructive process. IMPRESSION: THERE IS A SMALL AMOUNT OF FLUID IN THE PELVIS. RECENT SURGERY. POSTSURGICAL CHANGES. THE AMOUNT OF F LUID IN THE PELVIS IS SLIGHTLY INCREASED COMPARED TO PREOPERATIVE EXAM YESTERDAY. No evidence of abscess or fluid accumulation in the region of the appendix surgery. There is new line ar infiltrate and atelectasis at the lung bases compared to exam yesterday.
--- NOTE | 2017-09-29 20:07 | CT ---
EXAMINATION TYPE: CT angio chest DATE OF EXAM: 09/29/2017 7:46 PM COMPARISON: NONE HISTORY: Appendectomy yesterday. Chest pain and abdominal pain today. CT DLP: 1578.8 mGycm Automated exposure control for dose reduction was used. CONTRAST: CTA scan of the thorax is performed with IV Contrast, patient injected with 100 mL of Isovue 370, pul monary embolism protocol. There are 3-D post processed images.. FINDINGS: There is some patchy linear infiltrate and atelectasis at the posterior lung bases and more on the ri ght side. There is a pneumoperitoneum. There is also a small pneumopericardium. There is no evidence of thoracic aortic aneurysm or dissection. There is no pericardial effusion. I see no filling defects in the pulmonary arteries. There is no mediastinal adenopathy. There are no hilar masses. The bony thorax is intact. IMPRESSION: No evidence of pulmonary embolism. THERE IS NEW LINEAR INFILTRATE AND ATELECTASIS AT THE LUNG BASES COMPARED TO CT SCAN YESTERDAY. THERE IS POSTSURGICAL CHANGES WITH PNEUMOPERITONEUM AND AIR UNDER THE DIAPHRAGM. THERE IS ALSO A SMALL PNE UMOPERICARDIUM OF UNCERTAIN SIGNIFICANCE. THERE IS ALSO SMALL PNEUMOMEDIASTINUM.
[2017-09-29] MEDS ORDERED: KETOROLAC 30 MG/ML 1 ML VIAL IVP STA (20:16)
[2017-09-29] MEDS ORDERED: ACETAMINOPHEN IV (For NPO) 1,000 MG in EMPTY BAG 1 BAG IVPB STA (20:16)
[2017-09-29] MEDS ORDERED: LEVOFLOXACIN 750MG-D5W PMX 750 MG in DEXTROSE/WATER 1 150ML.BAG IVPB STA (20:16)
[2017-09-29] MEDS ORDERED: IPRATROPIUM-ALBUTEROL 3 ML NEB INHALATION STA (20:16)
[2017-09-29] MEDS ORDERED: PIPERACILLIN-TAZOBACTAM 3.375 GM in DEXTROSE/WATER 1 50ML.BAG IVPB STA (20:16)
[2017-09-29] MEDS ORDERED: SODIUM CHLORIDE 0.9% 1,000 ML IV ONE (20:53)
[2017-09-29] MEDS: MORPHINE SULFATE 4 MG/0.8 ML SYRINGE (INJ) IVP PRN (22:13)
[2017-09-29] MEDS: DOCUSATE 100 MG CAP PO SCH (22:15)
[2017-09-30] MEDS: HYDROcodone/APAP 5-325MG 1 EACH TAB PO PRN ×3 (01:52→22:31)
[2017-09-30] MEDS: MORPHINE SULFATE 4 MG/0.8 ML SYRINGE (INJ) IVP PRN (07:27)
[2017-09-30 07:36] LABS: Basophils % (A) 0 %; Eosinophils # (A) 0.2 k/uL (0-0.7); Eosinophils % (A) 3 %; HCT 39.1 % (34.0-46.0); HGB 12.3 gm/dL (11.4-16.0); Lymphocytes % (A) 50 %; MCHC 31.5 g/dL (31.0-37.0); MCV 88.9 fL (80.0-100.0); Mean Platelet Volume 9.4; Monocytes # (A) 0.4 k/uL (0-1.0); Monocytes % (A) 6 %; Neutrophils # (A) 3.2 k/uL (1.3-7.7); Neutrophils % (A) 40 %; Platelet Count 285 k/uL (150-450); RDW 13.9 % (11.5-15.5)
[2017-09-30] MEDS: LISINOPRIL 20 MG TAB PO SCH (08:45)
[2017-09-30] MEDS: DOCUSATE 100 MG CAP PO SCH ×2 (08:46→21:20)
--- NOTE | 2017-09-30 10:05 | P.GSHP ---
History of Present Illness H&P Date: 09/30/17 42-year-old female postoperative day #2 status post laparoscopic appendectomy presented to the emergency department approximately 6 hours after discharge with complaints of neck pain, shoulder pain, back pain and anterior chest pain. She states that she tried Amigo at home and was unable to tolerate the pain. She did present via EMS. In the emergency department, a CTA of the chest abdomen and pelvis was performed that illustrated postoperative changes and atelectatic changes. She also did have a fever in the emergency department. She denied any nausea and vomiting. She stated her abdominal pain was controlled. She stated that she did feel short of breath prior to ER arrival. Since her admission, she states that she is feeling much better. She is tolerating a regular diet. Her chest pain and back pain have resolved. She is using incentive spirometry. She is ambulating. She has no additional complaints at this time. - Review of Systems All systems: negative Past Medical History Past Medical History: Hyperlipidemia, Hypertension Additional Past Medical History / Comment(s): "Borderline high cholesterol, I was given a script but decided not to take it", sinus problems. History of Any Multi-Drug Resistant Organisms: None Reported Past Surgical History: Adenoidectomy, Appendectomy, Section, Hysterectomy, Tonsillectomy Additional Past Surgical History / Comment(s): x 2 Past Anesthesia/Blood Transfusion Reactions: No Reported Reaction Past Psychological History: Anxiety Smoking Status: Current every day smoker Past Alcohol Use History: None Reported Past Drug Use History: None Reported - Past Family History Father Family Medical History: Diabetes Mellitus Mother Family Medical History: Hypertension Medications and Allergies Home Medications Medication Instructions Recorded Confirmed Type RX: Lisinopril 40 mg PO DAILY 09/28/17 09/29/17 History Docusate [Colace] 100 mg PO BID #20 capsule 09/29/17 09/29/17 Rx RX: HYDROcodone/APAP 5-325MG 1 each PO Q6HR PRN #16 tab 09/29/17 09/29/17 Rx [Amigo 5-325] Allergies Allergy/AdvReac Type Severity Reaction Status Date / Time No Known Allergies Allergy Verified 09/29/17 19:21 Surgical - Exam Osteopathic Statement: *. No significant issues noted on an osteopathic structural exam other than those noted in the History and Physical/Consult. Vital Signs Temp Pulse Resp BP Pulse Ox 99.6 F 74 20 210/101 100 09/29/17 18:12 09/29/17 18:12 09/29/17 18:12 09/29/17 18:12 09/29/17 18:12 - General well nourished, no distress - Eyes normal ocular movement - ENT normal mucosa, no hearing loss - Neck trachea midline - Respiratory No difficulty with respiration - Abdomen Soft, appropriate tenderness, nondistended, no rebound, no guarding, incision sites are clean, dry and intact - Neurologic normal sensation - Psychiatric oriented to time, oriented to person, oriented to place, speech is normal Results - Labs 09/30/17 06:54 09/29/17 18:15 Abnormal Lab Results - Last 24 Hours (Table) 09/29/17 09/29/17 09/29/17 Range/Units 18:15 18:15 18:15 WBC 13.7 H (3.8-10.6) k/uL Neutrophils # 10.1 H (1.3-7.7) k/uL INR (<1.2) D-Dimer (<0.60) mg/L FEU AST 39 H (14-36) U/L Total Creatine Kinase 609 H (30-135) U/L CK-MB (CK-2) 3.4 H* (0.0-2.4) ng/mL Urine Appearance (Clear) Urine WBC (0-5) /hpf Ur Squamous Epith Cells (0-4) /hpf Urine Bacteria (None) /hpf 09/29/17 09/29/17 Range/Units 18:15 18:15 WBC (3.8-10.6) k/uL Neutrophils # (1.3-7.7) k/uL INR 1.2 H (<1.2) D-Dimer 1.61 H (<0.60) mg/L FEU AST (14-36) U/L Total Creatine Kinase (30-135) U/L CK-MB (CK-2) (0.0-2.4) ng/mL Urine Appearance Cloudy H (Clear) Urine WBC 6 H (0-5) /hpf Ur Squamous Epith Cells 7 H (0-4) /hpf Urine Bacteria Rare H (None) /hpf Microbiology - Last 24 Hours (Table) 04/26/18 18:15 Urine Culture - Preliminary Urine,Voided Diabetes panel 09/29/17 Range/Units 18:15 Sodium 145 (137-145) mmol/L Potassium 3.8 (3.5-5.1) mmol/L Chloride 106 (98-107) mmol/L Carbon Dioxide 26 (22-30) mmol/L BUN 12 (7-17) mg/dL Creatinine 0.70 (0.52-1.04) mg/dL Glucose 94 (74-99) mg/dL Calcium 9.3 (8.4-10.2) mg/dL AST 39 H (14-36) U/L ALT 32 (9-52) U/L Alkaline Phosphatase 72 (38-126) U/L Total Protein 6.8 (6.3-8.2) g/dL Albumin 4.1 (3.5-5.0) g/dL Calcium panel 09/29/17 Range/Units 18:15 Calcium 9.3 (8.4-10.2) mg/dL Phosphorus 2.7 (2.5-4.5) mg/dL Albumin 4.1 (3.5-5.0) g/dL Pituitary panel 09/29/17 Range/Units 18:15 Sodium 145 (137-145) mmol/L Potassium 3.8 (3.5-5.1) mmol/L Chloride 106 (98-107) mmol/L Carbon Dioxide 26 (22-30) mmol/L BUN 12 (7-17) mg/dL Creatinine 0.70 (0.52-1.04) mg/dL Glucose 94 (74-99) mg/dL Calcium 9.3 (8.4-10.2) mg/dL Adrenal panel 09/29/17 Range/Units 18:15 Sodium 145 (137-145) mmol/L Potassium 3.8 (3.5-5.1) mmol/L Chloride 106 (98-107) mmol/L Carbon Dioxide 26 (22-30) mmol/L BUN 12 (7-17) mg/dL Creatinine 0.70 (0.52-1.04) mg/dL Glucose 94 (74-99) mg/dL Calcium 9.3 (8.4-10.2) mg/dL Total Bilirubin 0.5 (0.2-1.3) mg/dL AST 39 H (14-36) U/L ALT 32 (9-52) U/L Alkaline Phosphatase 72 (38-126) U/L Total Protein 6.8 (6.3-8.2) g/dL Albumin 4.1 (3.5-5.0) g/dL - Imaging CT scan - abdomen: report reviewed, image reviewed CT scan - chest: report reviewed, image reviewed CT scan - pelvis: report reviewed, image reviewed (CT of the chest, abdomen and pelvis was performed. Postoperative changes noted. Atelectasis noted.) Assessment and Plan (1) Postoperative fever Narrative/Plan: 42-year-old female status post laparoscopic appendectomy, postoperative day #2 - Presented with postoperative day #1 fever, likely secondary to atelectasis - Continue incentive spirometry - Encouraged ambulation, I did discuss this in depth with the patient - Continue regular diet - Bowel regimen - Pain control Current Visit: Yes Status: Acute Code(s): R50.82 - POSTPROCEDURAL FEVER SNOMED Code(s): 820954201
[2017-09-30] MEDS ORDERED: MORPHINE ORAL SOLN 10 MG/5 ML CUP PO PRN (11:02)
[2017-09-30] MEDS ORDERED: IPRATROPIUM-ALBUTEROL 3 ML NEB INHALATION ONE (15:31)
[2017-10-01 07:05] LABS: Basophils % (A) 0 %; Eosinophils # (A) 0.3 k/uL (0-0.7); Eosinophils % (A) 4 %; HCT 37.4 % (34.0-46.0); HGB 12.2 gm/dL (11.4-16.0); Lymphocytes # (A) 2.8 k/uL (1.0-4.8); Lymphocytes % (A) 40 %; MCH 28.5 pg (25.0-35.0); MCHC 32.6 g/dL (31.0-37.0); MCV 87.5 fL (80.0-100.0); Monocytes # (A) 0.3 k/uL (0-1.0); Monocytes % (A) 4 %; Neutrophils # (A) 3.5 k/uL (1.3-7.7); Neutrophils % (A) 49 %; Platelet Count 285 k/uL (150-450); RBC 4.27 m/uL (3.80-5.40); RDW 13.9 % (11.5-15.5)
[2017-10-01 07:48] LABS: Anion Gap 9 mmol/L; Blood Urea Nitrogen 11 mg/dL (7-17); Carbon Dioxide 25 mmol/L (22-30); Chloride 110 mmol/L (98-107); Glucose 88 mg/dL (74-99); Potassium 4.4 mmol/L (3.5-5.1); Sodium 144 mmol/L (137-145)
[2017-10-01 07:49] LABS: Calcium 9.1 mg/dL (8.4-10.2)
[2017-10-01 08:07] VITALS: BP 165/78; PULSE 58; RESP 14; TEMP 98.2
[2017-10-01] MEDS: LISINOPRIL 20 MG TAB PO SCH (08:08)
[2017-10-01] MEDS: DOCUSATE 100 MG CAP PO SCH (08:08)
--- NOTE | 2017-10-01 08:43 | P.DS ---
Providers Date of admission: 09/29/17 20:53 Attending physician: Marcell López DO Primary care physician: Sacha Toledo - Discharge Diagnosis(es) (1) Postoperative fever Current Visit: Yes Status: Acute Hospital Course: 42-year-old female returned to the emergency department approximately 6-8 hours status post discharge after laparoscopic appendectomy. She stated that she had back pain, shoulder pain, neck pain and chest pain. On workup she was found to have atelectasis. Incentive spirometry was offered to the patient and deep breathing exercises were taught to the patient. Her laboratory values were reassessed and she did not have any leukocytosis. Her oxygen saturation during her admission remained adequate. The patient continues to ambulate. She is tolerating a regular diet. She currently denies any chest pain or abdominal pain. At this point, the patient is stable for discharge. I did discuss with the patient the importance of following up with her primary care physician for any additional chest pain or back pain. She also was given the contact information for my office. Pertinent Studies: CT of the chest abdomen and pelvis was performed. This was evaluated during her admission. Patient Condition at Discharge: Good Plan - Discharge Summary Discharge Rx Participant: Yes New Discharge Prescriptions: New Ibuprofen [Motrin] 800 mg PO Q6HR PRN #16 tab PRN Reason: Pain Continue Lisinopril 40 mg PO DAILY Docusate [Colace] 100 mg PO BID #20 capsule Discontinued HYDROcodone/APAP 5-325MG [[place] 5-325] 1 each PO Q6HR PRN #16 tab PRN Reason: Mild Pain Discharge Medication List Lisinopril 40 mg PO DAILY 09/28/17 [History] Docusate [Colace] 100 mg PO BID #20 capsule 09/29/17 [Rx] Ibuprofen [Motrin] 800 mg PO Q6HR PRN #16 tab 10/01/17 [Rx] Follow up Appointment(s)/Referral(s): Sacha Toledo MD [Primary Care Provider] - 1-2 days Marcell López DO [Doctor of Osteopathic Medicine] - 1 Week Patient Instructions/Handouts: Atelectasis (DC) Activity/Diet/Wound Care/Special Instructions: Continue to increase activity daily Ambulate often Deep breathing Continue incentive spirometry Take pain medication as necessary Take stool softeners Okay to shower Discharge Disposition: HOME SELF-CARE
[2017-10-01] MEDS: HYDROcodone/APAP 5-325MG 1 EACH TAB PO PRN (10:30)
== END 2017-10-01 13:00 | disposition home or self-care (01) ==
LOC: EC 18:09 → 3SUR 20:53
PROVIDERS: ADMIT Surgery; ATTEND Surgery
DX: R50.82 Postprocedural fever (principal); R07.89 Other chest pain; J98.11 Atelectasis; R11.0 Nausea; R10.9 Unspecified abdominal pain; I10 Essential (primary) hypertension; E78.5 Hyperlipidemia, unspecified; F41.9 Anxiety disorder, unspecified; M54.9 Dorsalgia, unspecified; M54.2 Cervicalgia; M25.519 Pain in unspecified shoulder; F17.200 Nicotine dependence, unspecified, uncomplicated; Z90.49 Acquired absence of other specified parts of digestive tract; Z79.899 Other long term (current) drug therapy; Z82.49 Family history of ischemic heart disease and other diseases of the circulatory system; Z83.3 Family history of diabetes mellitus
CPT/HCPCS: 96375 ×6; 96361 ×4; 96365 ×2; 99285 ×2; 96376 ×2; 96366; 96367; 36415; 94640 ×2; 93005; 85379; 80053; 80048; 82550; 82553; 83605; 83690; 83735; 84100; 84484; 85025 ×3; 85610; 85730; 81001; 87086; 71275; 74177; G0378 ×3; J2405; J1885; J1956; J2543; J0131; C9113; Q9967; J2270 ×2

== ENCOUNTER 2023-09-24 23:55 | Emergency (ER) | payer OTHER ==
--- NOTE | 2023-09-25 00:38 | ED ---
General Adult HPI - General Chief complaint: Extremity Problem,Nontraumatic Stated complaint: Cramps Time Seen by Provider: 09/25/23 00:22 Source: patient, RN notes reviewed, old records reviewed Mode of arrival: EMS - History of Present Illness Initial comments: Patient is a 48-year-old female who presents emergency department complaining of body muscle spasms. Patient states that the started after she started a new medication 3 days ago for blood pressure. Patient was previously on just losartan, however given a new medication, losartan hydrochlorothiazide. She began taking this medication 3 days ago. States that she has been having generalized bodyaches, cramping. Located in arms and legs. Also has some muscle cramping located in her abdominal muscle wall as well as back. She called EMS this evening because she took a double dose of her losartan today after stopping her new medication. This made her feel flushed and lightheaded. She also began experiencing worsening pain. Patient was administered IV fentanyl prior to arrival and she states she feels much improved at this time. Denies any other acute complaints. Denies any current pain. Presents for further evaluation. States she only feels "sore." Denies shortness of breath, fevers, chills, cough, nausea, vomiting, diarrhea. - Related Data Home Medications Medication Instructions Recorded Confirmed lisinopriL 40 mg PO DAILY 09/28/17 09/29/17 Previous Rx's Medication Instructions Recorded Docusate [Colace] 100 mg PO BID #20 capsule 09/29/17 Ibuprofen [Motrin] 800 mg PO Q6HR PRN #16 tab 10/01/17 Allergies Allergy/AdvReac Type Severity Reaction Status Date / Time No Known Allergies Allergy Verified 09/25/23 00:03 Review of Systems ROS Statement: Those systems with pertinent positive or pertinent negative responses have been documented in the HPI. Review of Systems: CONST: Denies fever EYES: Denies blurry vision ENT: Denies nasal congestion C/V: Denies Chest pain RESP: Denies shortness of breath GI: Denies abdominal pain : Denies dysuria SKIN: Denies rash. MSK: Denies joint pain. NEURO: Denies headache ROS Other: All systems not noted in ROS Statement are negative. Past Medical History Past Medical History: Hyperlipidemia, Hypertension Additional Past Medical History / Comment(s): "Borderline high cholesterol, I was given a script but decided not to take it", sinus problems. History of Any Multi-Drug Resistant Organisms: None Reported Past Surgical History: Adenoidectomy, Appendectomy, Section, Hysterectomy, Tonsillectomy Additional Past Surgical History / Comment(s): x 2 Past Anesthesia/Blood Transfusion Reactions: No Reported Reaction Past Psychological History: Anxiety Smoking Status: Never smoker Past Alcohol Use History: None Reported Past Drug Use History: None Reported - Past Family History Father Family Medical History: Diabetes Mellitus Mother Family Medical History: Hypertension General Exam - General Exam Comments Initial Comments: General: Appears in no acute distress. HEAD: Normal with no signs of head trauma. EYES: PERRLA, EOMI, conjunctiva normal, no discharge. ENT: Hearing grossly intact, normal oropharynx. RESPIRATORY: Clear breath sounds bilaterally. No wheezes, rales, or rhonchi. C/V: Regular rate and rhythm. S1 and S2 auscultated, no edema, peripheral pulses 2+ and intact throughout ABD: Abd is soft, nontender, nondistended EXT: Normal range of motion, no obvious deformity SKIN: No rashes or lesions observed on exposed skin. NEURO: Alert and oriented x 4. No focal deficits. Course Vital Signs 09/25/23 09/25/23 09/25/23 00:04 01:14 03:19 Temperature 97.2 F L 98.4 F Pulse Rate 84 83 87 Respiratory 20 19 13 Rate Blood Pressure 129/79 144/90 149/84 O2 Sat by Pulse 97 97 96 Oximetry Medical Decision Making - Medical Decision Making Was pt. sent in by a medical professional or institution (, PA, MANAGER LEGAL, urgent care, hospital, or fdc...) When possible be specific @ -No Did you speak to anyone other than the patient for history (EMS, parent, family, police, friend...)? What history was obtained from this source @ -No Did you review nursing and triage notes (agree or disagree)? Why? @ -I reviewed and agree with nursing and triage notes Were old charts reviewed (outside hosp., previous admission, EMS record, old EKG, old radiological studies, urgent care reports/EKG's, fdc records)? Report findings @ -Old charts reviewed Differential Diagnosis (chest pain, altered mental status, abdominal pain women, abdominal pain men, vaginal bleeding, weakness, fever, dyspnea, syncope, headache, dizziness, GI bleed, back pain, seizure, CVA, palpatations, mental health, musculoskeletal)? @ -Muscle spasms, myalgias, electrolyte abnormalities. This list is not all inclusive. EKG interpreted by me (3pts min.). @ -As above X-rays interpreted by me (1pt min.). @ -None done CT interpreted by me (1pt min.). @ -None done U/S interpreted by me (1pt. min.). @ -None done What testing was considered but not performed or refused? (CT, X-rays, U/S, labs)? Why? @ -None What meds were considered but not given or refused? Why? @ -None Did you discuss the management of the patient with other professionals (professionals i.e. , PA, MANAGER LEGAL, lab, RT, psych nurse, psychotherapist social worker, transfer car operator, teacher, ecological technical officer, case management manager)? Give summary @ -No Was smoking cessation discussed for >3mins.? @ -No Was critical care preformed (if so, how long)? @ -No Were there social determinants of health that impacted care today? How? (Homelessness, low income, unemployed, alcoholism, drug addiction, transportation, low edu. Level, literacy, decrease access to med. care, usp, rehab)? @ -No Was there de-escalation of care discussed even if they declined (Discuss DNR or withdrawal of care, Hospice)? DNR status @ -No What co-morbidities impacted this encounter? (DM, HTN, Smoking, COPD, CAD, Cancer, CVA, ARF, Chemo, Hep., AIDS, mental health diagnosis, sleep apnea, morbid obesity)? @ -None Was patient admitted / discharged? Hospital course, mention meds given and route, prescriptions, significant lab abnormalities, going to OR and other pertinent info. @ -Patient presents with myalgias after recently starting new blood pressure medication. Also appears what sounds like to have had a hypotensive episode at home after taking double of her old blood pressure medication to try to make up for it. Currently is feeling well and is asymptomatic. Received fentanyl prior to arrival. We will obtain basic labs, screening EKG, and treat the patient with IV fluids. She was in agreement this plan. EKG showed no signs of acute ischemia. Patient's laboratory studies are all unremarkable including normal kidney function except for slightly elevated creatinine kinase of 355. No evidence of blood in the urine. Normal renal function. After the patient. Feeling improved at this time. She will be given a second liter of fluids. We discussed she should stop taking the hydrochlorothiazide at this time, and I recommended she not double up on her previous losartan dose of 50 mg. She was in agreement this plan. She will go back on her original 50 mg losartan daily and follow-up with her PCP on Tuesday. Strict return precautions discussed. She was in agreement this plan. I instructed the patient to follow up with their PCP in the next 1-3 days. I explained that the patient should return to the emergency department if they experience any worsening symptoms. Strict return precautions were discussed with the patient. The patient expressed understanding of these instructions. I answered all questions that the patient had. The patient was discharged home in good condition with their prescriptions and follow up information. Undiagnosed new problem with uncertain prognosis? @ -No Drug Therapy requiring intensive monitoring for toxicity (Heparin, Nitro, Insulin, Cardizem)? @ -No Were any procedures done? @ -No Diagnosis/symptom? @ -Muscle spasms Acute, or Chronic, or Acute on Chronic? @ -Acute Uncomplicated (without systemic symptoms) or Complicated (systemic symptoms)? @ -Complicated Side effects of treatment? @ -None Exacerbation, Progression, or Severe Exacerbation] @ -No Poses a threat to life or bodily function? @ -Unlikely - Lab Data Result diagrams: 09/25/23 00:43 09/25/23 00:43 Lab Results 09/25/23 09/25/23 09/25/23 Range/Units 00:43 00:43 00:43 WBC 10.3 (3.8-10.6) k/uL RBC 5.09 (3.80-5.40) m/uL Hgb 15.0 (11.4-16.0) gm/dL Hct 44.8 (34.0-46.0) % MCV 88.0 (80.0-100.0) fL MCH 29.4 (25.0-35.0) pg MCHC 33.4 (31.0-37.0) g/dL RDW 13.6 (11.5-15.5) % Plt Count 332 (150-450) k/uL MPV 9.1 Neutrophils % 69 % Lymphocytes % 21 % Monocytes % 6 % Eosinophils % 2 % Basophils % 1 % Neutrophils # 7.2 (1.3-7.7) k/uL Lymphocytes # 2.2 (1.0-4.8) k/uL Monocytes # 0.6 (0-1.0) k/uL Eosinophils # 0.2 (0-0.7) k/uL Basophils # 0.1 (0-0.2) k/uL Sodium 138 (137-145) mmol/L Potassium 3.7 (3.5-5.1) mmol/L Chloride 104 (98-107) mmol/L Carbon Dioxide 23 (22-30) mmol/L Anion Gap 11 mmol/L BUN 22 H (7-17) mg/dL Creatinine 0.68 (0.52-1.04) mg/dL Est GFR (CKD-EPI)AfAm >90 (>60 ml/min/1.73 sqM) Est GFR (CKD-EPI)NonAf >90 (>60 ml/min/1.73 sqM) Glucose 108 H (74-99) mg/dL Calcium 9.2 (8.4-10.2) mg/dL Magnesium 2.3 (1.6-2.3) mg/dL Total Bilirubin 0.6 (0.2-1.3) mg/dL AST 33 (14-36) U/L ALT 35 H (4-34) U/L Alkaline Phosphatase 101 (38-126) U/L Creatine Kinase 355 H (30-135) U/L Total Protein 7.0 (6.3-8.2) g/dL Albumin 4.3 (3.5-5.0) g/dL Urine Color Colorless Urine Appearance Clear (Clear) Urine pH 5.0 (5.0-8.0) Ur Specific [place] 1.015 (1.001-1.035) Urine Protein Negative (Negative) Urine Glucose (UA) Negative (Negative) Urine Ketones Negative (Negative) Urine Blood Negative (Negative) Urine Nitrite Negative (Negative) Urine Bilirubin Negative (Negative) Urine Urobilinogen <2.0 (<2.0) mg/dL Ur Leukocyte Esterase Small H (Negative) Urine RBC 1 (0-5) /hpf Urine WBC 4 (0-5) /hpf Ur Squamous Epith Cells 1 (0-4) /hpf Hyaline Casts 159 H (0-2) /lpf Urine Mucus Few H (None) /hpf - EKG Data -: EKG Interpreted by Me EKG Comments: 12-lead Electrocardiogram Interpretation Note EKG was reviewed and interpreted by myself. 12-lead ECG performed at 0043 is interpreted by me as revealing normal sinus rhythm at a rate of 80 beats per minute. Driver is normal. WA interval is 156 ms, QRS duration is 93 ms, QTc is 4 2 and 58 ms.. There were no ST or T wave abnormalities to suggest myocardial ischemia or injury. R wave progression across the precordium was satisfactory. By my interpretation this EKG is non-diagnostic for acute ischemia. Disposition Clinical Impression: Muscle spasm Disposition: HOME SELF-CARE Condition: Good Instructions (If sedation given, give patient instructions): Muscle Spasm (ED) Is patient prescribed a controlled substance at d/c from ED?: No Referrals: Darshana Richmond MD [Primary Care Provider] - 1-2 days Time of Disposition: 02:49
[2023-09-25 01:05] LABS: Basophils # (A) 0.1 k/uL (0-0.2); Basophils % (A) 1 %; Eosinophils # (A) 0.2 k/uL (0-0.7); Eosinophils % (A) 2 %; HCT 44.8 % (34.0-46.0); Lymphocytes # (A) 2.2 k/uL (1.0-4.8); Lymphocytes % (A) 21 %; MCH 29.4 pg (25.0-35.0); MCHC 33.4 g/dL (31.0-37.0); Mean Platelet Volume 9.1; Monocytes # (A) 0.6 k/uL (0-1.0); Monocytes % (A) 6 %; Neutrophils # (A) 7.2 k/uL (1.3-7.7); Neutrophils % (A) 69 %; Platelet Count 332 k/uL (150-450); RBC 5.09 m/uL (3.80-5.40); RDW 13.6 % (11.5-15.5); WBC 10.3 k/uL (3.8-10.6)
[2023-09-25 01:10] LABS: Appearance,Urine Clear (Clear); Bilirubin,Urine Negative (Negative); Color,Urine Colorless; Glucose,Urine (UA) Negative (Negative); Ketones,Urine Negative (Negative); Protein,Urine Negative (Negative); Specific Gravity,Urine 1.015 (1.001-1.035)
[2023-09-25 01:11] LABS: Blood,Urine Negative (Negative); Hyaline Casts,Urine 159 /lpf (0-2); Leukocyte Esterase,Urine Small (Negative); Mucus,Urine Few /hpf; Nitrite,Urine Negative (Negative); RBC,Urine 1 /hpf (0-5); Squamous Epithelial Cell,Urine 1 /hpf (0-4); Urobilinogen,Urine <2.0 mg/dL (<2.0); WBC,Urine 4 /hpf (0-5)
[2023-09-25] MEDS: SODIUM CHLORIDE 0.9% 1,000 ML IV ONE (01:14)
[2023-09-25 01:19] LABS: ALT 35 U/L (4-34); AST 33 U/L (14-36); African American GFR (CKD) >90 (>60 ml/min/1.73 sqM); Albumin 4.3 g/dL (3.5-5.0); Alkaline Phosphatase 101 U/L (38-126); Anion Gap 11 mmol/L; Blood Urea Nitrogen 22 mg/dL (7-17); Calcium 9.2 mg/dL (8.4-10.2); Carbon Dioxide 23 mmol/L (22-30); Chloride 104 mmol/L (98-107); Creatine Kinase 355 U/L (30-135); Glucose 108 mg/dL (74-99); Magnesium 2.3 mg/dL (1.6-2.3); Non-African American GFR(CKD) >90 (>60 ml/min/1.73 sqM); Potassium 3.7 mmol/L (3.5-5.1); Sodium 138 mmol/L (137-145); Total Bilirubin 0.6 mg/dL (0.2-1.3)
[2023-09-25] MEDS: KETOROLAC 15 MG/ML 1 ML VIAL IVP STA (01:30)
[2023-09-25] MEDS: SODIUM CHLORIDE 0.9% 1,000 ML IV STA (01:30)
[2023-09-25] MEDS: ACET/COD 300 MG/30 MG STARTER PACK 6 TAB BTL PO STA (03:18)
[2023-09-25 03:35] VITALS: BP 149/84; PULSE 87; RESP 13; TEMP 98.4
== END 2023-09-25 03:20 | disposition home or self-care (01) ==
LOC: SUPCPDRO 23:55 → EC 23:55
DX: R25.2 Cramp and spasm (principal)
CPT/HCPCS: 99284; 96374; 96361; 36415; 93005; 80053; 82550; 83735; 85025; 81001; J1885